=== PATIENT | female | born 1985 | race Caucasian/White ===

== ENCOUNTER 2018-04-07 03:57 | Emergency (ER) | payer MEDICAID ==
[~2018-04-07] VITALS: Ht 162.6 cm; Wt 72.6 kg
[2018-04-07 04:04] VITALS: BP 150/98
--- NOTE | 2018-04-07 04:04 | NUR ---
PT AMBULATORY TO ER BED 4. BIBSELF C/O LEFT SIDE FACE SWELLING AND PAIN X 1 DAY. DENIES TRAUMA. PT PLACED ON LINOLEUM MECHANIC. VSS/RESP EVEN UNLABORED/NAD NOTED/SKIN WARM AND DRY/AFEBRILE/DENIES N-V-D/AOX4. AWAITNG MD PAYNE.
== END 2018-04-07 04:51 | disposition home or self-care (01) ==
LOC: ER 04:03
DX: K04.7 Periapical abscess without sinus (principal); K02.9 Dental caries, unspecified; F17.200 Nicotine dependence, unspecified, uncomplicated
CPT/HCPCS: A4606; Z7610